=== PATIENT | female | born 1940 | race Caucasian/White ===

== ENCOUNTER → 2017-01-16 | Outpatient (CLI) | payer MEDICARE, OTHER ==
[2014-05-10 18:00] VITALS: BP 152/68
[~2017-01-16] MED LIST: AMLODIPINE BESYL5 MG PO; CALCIUM600 MG PO; CARVEDILOL25 MG PO; CELEXA20 MG PO; COLACE 100100 MG/CAP PO; FISH OIL 1000MG1 CAP PO; GARLIC500 M1 PO; GOOD SENSE ASPI81 M1 PO; GREEN COFFEE BEAN EX PO; JANUVIA100 MG PO; L-THYROXINE0.075 MG PO; LANTUS SOLOS100 U/M1 SC; LISINOPRIL/HCTZ1 TA2 PO; MELOXICAM7.5 MG PO; METFORMIN1000 MG PO; MOBIC7.5 MG PO; NEIGHBOR PO; NORCO 325 MG-51 TA1 PO; PRAVACHOL80 MG PO; PRINIVIL40 MG PO; VITAMIN E 400 U4001 PO
== END ==
LOC: MAMMO 09:02
DX: Z12.31 Encounter for screening mammogram for malignant neoplasm of breast (principal)
CPT/HCPCS: G0202

== ENCOUNTER → 2017-05-31 | Outpatient (CLI) | payer MEDICARE, OTHER ==
[2014-05-10 18:00] VITALS: BP 152/68
[2017-05-31 14:02] LABS: HEMATOCRIT 35.9 % (37.0-47.0); HEMOGLOBIN 11.3 g/dL (12.5-16.0); MEAN CELL VOLUME 87 fl (78-100); MEAN CORPUSCULAR HEMOGLOBIN 28 pg (27-31); MEAN CORPUSCULAR HGB CONC 32 g/dL (33-37); MEAN PLATELET VOLUME 9.8 fl (7.4-10.4); PLATELET COUNT 268 K/mm3 (130-400); RED BLOOD COUNT 4.11 M/mm3 (4.10-5.30); RED CELL DISTRIBUTION WIDTH 13.8 % (11.5-14.5); WHITE BLOOD COUNT 13.7 K/mm3 (4.8-10.8)
[2017-05-31 14:13] LABS: CALCIUM 9.2 mg/dL (8.4-10.2); POTASSIUM 3.8 mmol/L (3.6-5.0)
[2017-05-31 14:14] LABS: LYMPHOCYTE 18 % (20-51); MONOCYTE 5 % (3-10); NEUTROPHILS 75 % (42-75)
[2017-05-31 14:18] LABS: D-DIMER 0.53 mg/L FEU (0.15-0.50)
== END ==
LOC: RAD 13:45
PROVIDERS: Physician Assistant
DX: M77.31 Calcaneal spur, right foot (principal); R60.0 Localized edema

== ENCOUNTER → 2017-06-01 | Outpatient (CLI) | payer MEDICARE, OTHER ==
[~2017-06-01] MED LIST changes: +AMARYL4 M1 PO; +BENADRYL PO; +CALCIUM PO; +CELEXA 20MG20 MG/TA1 PO; +CENTRUM WOMEN1 EACH PO; +CIPRO250 M1 PO; +LANTUS SOLOS100 U/ML SQ; +METFOMIN HYDRO850 MG PO; +NAPROXEN SODIU220 M1 PO; +SLOW-MAG 106 MG1 ECT PO; +VITAMIN PO
== END ==
LOC: RAD 09:42
DX: M79.661 Pain in right lower leg (principal); M79.89 Other specified soft tissue disorders

== ENCOUNTER → 2017-06-01 | Outpatient (CLI) | payer MEDICARE, OTHER ==
[2014-05-10 18:00] VITALS: BP 152/68
[~2017-06-01] MED LIST changes: -AMARYL4 M1 PO; -BENADRYL PO; -CALCIUM PO; -CELEXA 20MG20 MG/TA1 PO; -CENTRUM WOMEN1 EACH PO; -CIPRO250 M1 PO; -LANTUS SOLOS100 U/ML SQ; -METFOMIN HYDRO850 MG PO; -NAPROXEN SODIU220 M1 PO; -SLOW-MAG 106 MG1 ECT PO; -VITAMIN PO
== END ==
LOC: RAD 09:42
DX: M79.604 Pain in right leg (principal); M79.89 Other specified soft tissue disorders

== ENCOUNTER 2017-07-29 19:31 | Emergency (ER) | payer MEDICARE, OTHER ==
[~2017-07-29] VITALS: Ht 149.9 cm; Wt 79.5 kg
[2017-07-29 20:21] LABS: HEMATOCRIT 32.5 % (37.0-47.0); HEMOGLOBIN 10.4 g/dL (12.5-16.0); MEAN CELL VOLUME 84 fl (78-100); MEAN CORPUSCULAR HEMOGLOBIN 27 pg (27-31); MEAN CORPUSCULAR HGB CONC 32 g/dL (33-37); MEAN PLATELET VOLUME 10.3 fl (7.4-10.4); PLATELET COUNT 205 K/mm3 (130-400); RED BLOOD COUNT 3.85 M/mm3 (4.10-5.30)
[2017-07-29 20:32] LABS: ALBUMIN 3.7 g/dL (3.5-5.0); BAND 11 % (0-10); BUN/CREATININE RATIO 17.3 (6.0-26.0); CALCIUM 8.6 mg/dL (8.4-10.2); LYMPHOCYTE 7 % (20-51); MONOCYTE 5 % (3-10); NEUTROPHILS 77 % (42-75); POTASSIUM 4.2 mmol/L (3.6-5.0); TOTAL BILIRUBIN 2.2 mg/dL (0.2-1.3); TOTAL PROTEIN 6.8 g/dL (6.3-8.2); WHITE BLOOD COUNT 23.2 K/mm3 (4.8-10.8)
[2017-07-29] MEDS ORDERED: VITAMIN PO (20:50)
[2017-07-29] MEDS ORDERED: CALCIUM PO (20:50)
[2017-07-29] MEDS ORDERED: BENADRYL PO (20:52)
[2017-07-29] MEDS ORDERED: CELEXA 20MG20 MG/TA1 PO (20:52)
[2017-07-29] MEDS ORDERED: AMARYL4 M1 PO (20:53)
[2017-07-29] MEDS ORDERED: LANTUS SOLOS100 U/ML SQ (20:54)
[2017-07-29] MEDS ORDERED: SLOW-MAG 106 MG1 ECT PO (20:56)
[2017-07-29] MEDS ORDERED: METFOMIN HYDRO850 MG PO (20:57)
[2017-07-29] MEDS ORDERED: NAPROXEN SODIU220 M1 PO (20:58)
[2017-07-29] MEDS ORDERED: CENTRUM WOMEN1 EACH PO (21:00)
[2017-07-29 22:09] LABS: URINE APPEARANCE CLOUDY; URINE BILIRUBIN NEGATIVE (NEGATIVE); URINE BLOOD 50 ery/uL (NEGATIVE); URINE COLOR YELLOW; URINE GLUCOSE 50 mg/dL mg/dL (NEGATIVE); URINE KETONE NEGATIVE (NEGATIVE); URINE LEUKOCYTE ESTERASE 2+ (NEGATIVE); URINE NITRATE NEGATIVE (NEGATIVE); URINE PROTEIN(semi-quant) 1+ mg/dL (NEGATIVE); URINE UROBILINOGEN NORMAL (NORMAL); URINE WBC >50 /hpf (0-3)
[2017-07-29 22:10] LABS: URINE MUCUS PRESENT (NOT PRESENT)
[2017-07-30] MEDS ORDERED: CIPRO250 M1 PO (00:04)
[2017-07-30 00:18] VITALS: BP 127/60
== END 2017-07-30 00:18 | disposition home or self-care (01) ==
LOC: ED 19:31
PROVIDERS: Family Medicine
DX: N39.0 Urinary tract infection, site not specified (principal); E83.42 Hypomagnesemia; E03.9 Hypothyroidism, unspecified; E10.8 Type 1 diabetes mellitus with unspecified complications; I10 Essential (primary) hypertension; R11.10 Vomiting, unspecified; Z79.82 Long term (current) use of aspirin; Z79.4 Long term (current) use of insulin
CPT/HCPCS: J1956; J3475; J3490; J7030

== ENCOUNTER → 2018-02-05 | Outpatient (CLI) | payer MEDICARE, OTHER ==
[~2018-02-05] MED LIST changes: +AMARYL4 M1 PO; +BENADRYL PO; +CALCIUM PO; +CELEXA 20MG20 MG/TA1 PO; +CENTRUM WOMEN1 EACH PO; +CIPRO250 M1 PO; +LANTUS SOLOS100 U/ML SQ; +METFOMIN HYDRO850 MG PO; +NAPROXEN SODIU220 M1 PO; +SLOW-MAG 106 MG1 ECT PO; +VITAMIN PO
== END ==
LOC: MAMMO 10:42
DX: Z12.31 Encounter for screening mammogram for malignant neoplasm of breast (principal)

== ENCOUNTER 2018-05-10 09:48 | Emergency (ER) | payer MEDICARE, OTHER ==
[~2018-05-10] VITALS: Wt 84.9 kg
[2018-05-10 10:16] LABS: BASO # 0.1 (0.02-0.10); EOS # 0.2 (0.04-0.40); EOS % 1.6 % (1.0-5.0); HEMATOCRIT 35.4 % (37.0-47.0); HEMOGLOBIN 11.6 g/dL (12.5-16.0); MEAN CELL VOLUME 89 fl (78-100); MEAN CORPUSCULAR HEMOGLOBIN 29 pg (27-31); MEAN CORPUSCULAR HGB CONC 33 g/dL (33-37); MEAN PLATELET VOLUME 8.9 fl (7.4-10.4); NEU # 6.6 (1.40-6.50); PLATELET COUNT 320 K/mm3 (130-400); RED BLOOD COUNT 3.99 M/mm3 (4.10-5.30); RED CELL DISTRIBUTION WIDTH 13.5 % (11.5-14.5); WHITE BLOOD COUNT 9.7 K/mm3 (4.8-10.8)
[2018-05-10 10:39] LABS: ALBUMIN 4.5 g/dL (3.5-5.0); CALCIUM 9.5 mg/dL (8.4-10.2); POTASSIUM 4.2 mmol/L (3.6-5.0); TOTAL BILIRUBIN 1.7 mg/dL (0.2-1.3); TOTAL PROTEIN 7.4 g/dL (6.3-8.2)
[2018-05-10 10:54] LABS: PH-URINE 6.5 (5.0 - 8.0); URINE APPEARANCE CLEAR; URINE BILIRUBIN NEGATIVE (NEGATIVE); URINE BLOOD 50 ery/uL (NEGATIVE); URINE COLOR YELLOW; URINE GLUCOSE NEGATIVE (NEGATIVE); URINE KETONE NEGATIVE (NEGATIVE); URINE LEUKOCYTE ESTERASE 1+ (NEGATIVE); URINE NITRATE NEGATIVE (NEGATIVE); URINE PROTEIN(semi-quant) 3+ mg/dL (NEGATIVE); URINE UROBILINOGEN NORMAL (NORMAL)
[2018-05-10] MEDS ORDERED: AMILORIDE HCL5 MG PO (11:20)
[2018-05-10] MEDS ORDERED: FUROSEMIDE40 MG (11:20)
[2018-05-10] MEDS ORDERED: SYNTHROID0.075 MG PO (11:20)
[2018-05-10] MEDS ORDERED: GLIMEPIRIDE4 MG PO (11:20)
[2018-05-10] MEDS ORDERED: LANTUS SOLOS100 U/ML SQ (11:22)
[2018-05-10] MEDS ORDERED: CEPHALEXIN500 M2 PO (13:09)
[2018-05-10 13:34] VITALS: BP 164/65
== END 2018-05-10 13:16 | disposition home or self-care (01) ==
LOC: ED 09:48
PROVIDERS: Nurse Practitioner
DX: E11.649 Type 2 diabetes mellitus with hypoglycemia without coma (principal); N39.0 Urinary tract infection, site not specified; Z88.2 Allergy status to sulfonamides; I10 Essential (primary) hypertension; E03.9 Hypothyroidism, unspecified; K21.9 Gastro-esophageal reflux disease without esophagitis; Z79.899 Other long term (current) drug therapy; Z79.82 Long term (current) use of aspirin; Z79.4 Long term (current) use of insulin

== ENCOUNTER 2019-01-26 15:17 | Emergency (ER) | payer MEDICARE, OTHER ==
[~2019-01-26 15:17] MED LIST changes: +AMILORIDE HCL5 MG PO; +AMOXICILLIN AND1 TA2 PO; +CALCIUM CARBONATE PO; -CALCIUM PO; +CALTRATE-600 W600 MG PO; +CEPHALEXIN500 M2 PO; +CIPRO500 M1 PO; +COREG 25MG25 MG/TAB PO; +FERROUS SULFAT325 M4 PO; +FUROSEMIDE40 MG PO; +GLIMEPIRIDE4 MG PO; +LEADER MAGNESIU1 TAB PO; +LEADER MELATONIN5 MG PO; +LEADER NATUR1000 MCG PO; +MI-ACID 200 MG-1 CT1 PO; +MUCINEX 60600 MG/TA1 PO; +NORVASC 10MG10 MG PO; +POTASSIUM GLUC500 M1 PO; +PROTONIX20 M1 PO; +SYNTHROID0.075 MG PO; -VITAMIN PO
[2019-01-26 15:24] VITALS: BP 198/83
[2019-01-26 16:48] LABS: EOS # 0.1 (0.04-0.40); EOS % 0.4 % (1.0-5.0); HEMATOCRIT 34.1 % (37.0-47.0); HEMOGLOBIN 11.3 g/dL (12.5-16.0); LYMPH# 2.5 (1.50-4.00); MEAN CELL VOLUME 85 fl (78-100); MEAN CORPUSCULAR HEMOGLOBIN 28 pg (27-31); MEAN CORPUSCULAR HGB CONC 33 g/dL (33-37); MEAN PLATELET VOLUME 8.9 fl (7.4-10.4); PLATELET COUNT 299 K/mm3 (130-400); RED BLOOD COUNT 4.03 M/mm3 (4.10-5.30); RED CELL DISTRIBUTION WIDTH 14.1 % (11.5-14.5); WHITE BLOOD COUNT 13.2 K/mm3 (4.8-10.8)
[2019-01-26 16:50] LABS: NEU # 9.6 (1.40-6.50)
[2019-01-26 16:58] LABS: ALBUMIN 4.3 g/dL (3.4-4.8); POTASSIUM 4.2 mmol/L (3.5-5.1)
[2019-01-26 16:59] LABS: CALCIUM 9.5 mg/dL (8.3-10.5)
[2019-01-26 17:00] LABS: TOTAL PROTEIN 7.4 g/dL (6.2-8.1)
[2019-01-26 17:02] LABS: TOTAL BILIRUBIN 1.8 mg/dL (0.2-1.2)
[2019-01-26 17:15] LABS: D-DIMER 0.55 mg/L FEU (0.15-0.50)
[2019-01-26] MEDS ORDERED: NORCO 325 MG-51 TA1 PO (18:56)
[2019-01-27] MEDS ORDERED: LEADER MELATONIN5 MG PO (17:58)
[2019-01-28] MEDS ORDERED: ZOFRAN4 M2 PO (08:47)
== END 2019-01-26 19:30 | disposition home or self-care (01) ==
LOC: ED 15:17
PROVIDERS: Family Medicine
DX: M18.12 Unilateral primary osteoarthritis of first carpometacarpal joint, left hand (principal); Z79.82 Long term (current) use of aspirin; Z79.4 Long term (current) use of insulin

== ENCOUNTER 2019-12-09 11:41 | Emergency (ER) | payer MEDICARE, OTHER ==
[~2019-12-09] VITALS: Wt 80.5 kg
[~2019-12-09 11:41] MED LIST changes: +ASPIRIN E.C. 8181 MG PO; -GOOD SENSE ASPI81 M1 PO; -LEADER NATUR1000 MCG PO; +LISINOPRIL40 MG PO; -PRAVACHOL80 MG PO; +PRAVASTATIN SOD80 MG PO; -PRINIVIL40 MG PO; +VITAMIN B12 1541 TAB PO; +ZOFRAN4 M2 PO
[2019-12-09 12:18] LABS: BASO # 0.1 (0.02-0.10); EOS # 0.1 (0.04-0.40); EOS % 1.1 % (1.0-5.0); HEMOGLOBIN 11.8 g/dL (12.5-16.0); LYMPH# 2.8 (1.50-4.00); MEAN CELL VOLUME 88 fl (78-100); MEAN CORPUSCULAR HEMOGLOBIN 28 pg (27-31); MEAN CORPUSCULAR HGB CONC 32 g/dL (33-37); MEAN PLATELET VOLUME 9.7 fl (7.4-10.4); MONO # 1.1 (0.20-0.80); NEU # 8.7 (1.40-6.50); PLATELET COUNT 259 K/mm3 (130-400); RED CELL DISTRIBUTION WIDTH 13.8 % (11.5-14.5); WHITE BLOOD COUNT 12.9 K/mm3 (4.8-10.8)
[2019-12-09 12:30] LABS: ALBUMIN 4.3 g/dL (3.4-4.8); POTASSIUM 4.2 mmol/L (3.5-5.1)
[2019-12-09 12:31] LABS: SODIUM 135 mmol/L (136-145)
[2019-12-09 12:32] LABS: CALCIUM 8.9 mg/dL (8.3-10.5)
[2019-12-09 12:33] LABS: PH-URINE 6.5 (5.0 - 8.0); URINE APPEARANCE CLEAR; URINE BILIRUBIN NEGATIVE (NEGATIVE); URINE BLOOD NEGATIVE (NEGATIVE); URINE COLOR YELLOW; URINE GLUCOSE NEGATIVE (NEGATIVE); URINE KETONE NEGATIVE (NEGATIVE); URINE LEUKOCYTE ESTERASE NEGATIVE (NEGATIVE); URINE NITRATE NEGATIVE (NEGATIVE); URINE PROTEIN(semi-quant) TRACE mg/dL (NEGATIVE); URINE UROBILINOGEN NORMAL (NORMAL)
[2019-12-09 12:33] LABS: GLUCOSE 102 mg/dL (65-105); TOTAL PROTEIN 7.4 g/dL (6.2-8.1)
[2019-12-09 12:34] LABS: CARBON DIOXIDE 22 mmol/L (23-31)
[2019-12-09 12:35] LABS: TOTAL BILIRUBIN 1.6 mg/dL (0.2-1.2)
[2019-12-09 12:38] LABS: AST-SGOT 20 U/L (5-34)
[2019-12-09 12:39] LABS: ALT/SGPT 14 U/L (0-55)
[2019-12-09 12:45] LABS: TROPONIN-I < 0.03 ng/mL (<0.030)
[2019-12-09 13:09] LABS: D-DIMER 0.67 mg/L FEU (0.15-0.50)
[2019-12-09] MEDS ORDERED: DAILY VALUE1 EACH PO (14:38)
[2019-12-09 15:30] VITALS: BP 171/67
== END 2019-12-09 15:41 | disposition home or self-care (01) ==
LOC: ED 11:41
PROVIDERS: Nurse Practitioner Family
DX: I11.0 Hypertensive heart disease with heart failure (principal); I50.9 Heart failure, unspecified; I35.0 Nonrheumatic aortic (valve) stenosis; E11.9 Type 2 diabetes mellitus without complications; E03.9 Hypothyroidism, unspecified; K21.9 Gastro-esophageal reflux disease without esophagitis; Z79.4 Long term (current) use of insulin; Z79.82 Long term (current) use of aspirin; Z79.890 Hormone replacement therapy
CPT/HCPCS: Q9967

== ENCOUNTER 2020-06-10 17:28 | Emergency (ER) | payer MEDICARE, OTHER ==
[~2020-06-10 17:28] MED LIST changes: +DAILY VALUE1 EACH PO
[2020-06-10 18:09] LABS: POTASSIUM 4.6 mmol/L (3.5-5.1); SODIUM 128 mmol/L (136-145)
[2020-06-10 18:10] LABS: CALCIUM 8.8 mg/dL (8.3-10.5)
[2020-06-10 18:11] LABS: GLUCOSE 309 mg/dL (65-105); TOTAL PROTEIN 6.4 g/dL (6.2-8.1)
[2020-06-10 18:12] LABS: CARBON DIOXIDE 22 mmol/L (23-31); HEMATOCRIT 28.4 % (37.0-47.0); HEMOGLOBIN 8.9 g/dL (12.5-16.0); MEAN CELL VOLUME 88 fl (78-100); MEAN CORPUSCULAR HEMOGLOBIN 28 pg (27-31); MEAN CORPUSCULAR HGB CONC 31 g/dL (33-37); MEAN PLATELET VOLUME 10.1 fl (7.4-10.4); PLATELET COUNT 408 K/mm3 (130-400); RED BLOOD COUNT 3.24 M/mm3 (4.10-5.30); RED CELL DISTRIBUTION WIDTH 14.1 % (11.5-14.5); WHITE BLOOD COUNT 14.1 K/mm3 (4.8-10.8)
[2020-06-10 18:13] LABS: TOTAL BILIRUBIN 1.2 mg/dL (0.2-1.2)
[2020-06-10 18:16] LABS: AST-SGOT 14 U/L (5-34)
[2020-06-10 18:18] LABS: ALT/SGPT 16 U/L (0-55)
[2020-06-10 18:23] LABS: D-DIMER 0.92 mg/L FEU (0.15-0.50)
[2020-06-10 18:49] LABS: TROPONIN-I < 0.03 ng/mL (<0.030)
[2020-06-10 20:47] LABS: HYPOCHROMIA 1+; LYMPHOCYTE 16 % (20-51); MONOCYTE 3 % (3-10); NEUTROPHILS 80 % (42-75)
[2020-06-10 21:48] VITALS: BP 163/86
== END 2020-06-10 21:48 | disposition short-term general hospital (02) ==
LOC: ED 17:28
PROVIDERS: Nurse Practitioner Family
DX: J98.01 Acute bronchospasm (principal); J84.9 Interstitial pulmonary disease, unspecified; N17.9 Acute kidney failure, unspecified; J96.01 Acute respiratory failure with hypoxia; I11.0 Hypertensive heart disease with heart failure; I50.9 Heart failure, unspecified; E11.9 Type 2 diabetes mellitus without complications; E11.22 Type 2 diabetes mellitus with diabetic chronic kidney disease; N18.9 Chronic kidney disease, unspecified
CPT/HCPCS: J0696; J1940; J7030; Q9967

== ENCOUNTER 2021-02-26 10:37 | Emergency (ER) | payer MEDICARE, OTHER ==
[~2021-02-26] VITALS: Ht 147.3 cm; Wt 80.5 kg
[2021-02-26] MEDS ORDERED: CLOPIDOGREL75 M2 PO (10:57)
[2021-02-26] MEDS ORDERED: FUROSEMIDE20 MG PO (10:59)
[2021-02-26] MEDS ORDERED: LANTUS SOLOS100 U/ML SQ (11:00)
[2021-02-26] MEDS ORDERED: ISOSORBIDE30 MG PO (11:01)
[2021-02-26] MEDS ORDERED: LEVETIRACETAM500 M2 PO (11:03)
[2021-02-26] MEDS ORDERED: DOCUSATE SOD100 MG PO (11:04)
[2021-02-26] MEDS ORDERED: SERTRALINE50 MG PO (11:04)
[2021-02-26] MEDS ORDERED: FAMOTIDINE20 MG PO (11:05)
[2021-02-26] MEDS ORDERED: PERCOCET 325 MG1 TA2 PO (11:55)
[2021-02-26 12:13] VITALS: BP 178/72
== END 2021-02-26 12:13 | disposition home or self-care (01) ==
LOC: ED 10:37
DX: S76.911A Strain of unspecified muscles, fascia and tendons at thigh level, right thigh, initial encounter (principal); E11.9 Type 2 diabetes mellitus without complications; I10 Essential (primary) hypertension; K21.9 Gastro-esophageal reflux disease without esophagitis; E03.9 Hypothyroidism, unspecified; Z79.899 Other long term (current) drug therapy; Z79.890 Hormone replacement therapy; Z79.4 Long term (current) use of insulin; Z79.02 Long term (current) use of antithrombotics/antiplatelets; X50.0XXA Overexertion from strenuous movement or load, initial encounter; Y93.01 Activity, walking, marching and hiking
CPT/HCPCS: J2270

== ENCOUNTER → 2021-11-03 | Outpatient (CLI) | payer MEDICARE, OTHER ==
[~2021-11-03] MED LIST changes: +CLOPIDOGREL75 M2 PO; +DOCUSATE SOD100 MG PO; +FAMOTIDINE20 MG PO; +FUROSEMIDE20 MG PO; +ISOSORBIDE30 MG PO; +LEVETIRACETAM500 M2 PO; +PERCOCET 325 MG1 TA2 PO; +SERTRALINE50 MG PO
[2021-11-03 12:29] LABS: BASO # 0.07 K/mm3 (0.02-0.10); EOS # 0.11 K/mm3 (0.04-0.40); EOS % 0.9 % (1.0-5.0); HEMATOCRIT 37.1 % (37.0-47.0); LYMPH# 2.51 K/mm3 (1.50-4.00); MEAN CELL VOLUME 88 fl (78-100); MEAN CORPUSCULAR HEMOGLOBIN 28 pg (27-31); MEAN CORPUSCULAR HGB CONC 32 g/dL (33-37); MEAN PLATELET VOLUME 9.8 fl (7.4-10.4); MONO # 1.09 K/mm3 (0.20-0.80); NEU # 9.01 K/mm3 (1.40-6.50); PLATELET COUNT 234 K/mm3 (130-400); RED BLOOD COUNT 4.22 M/mm3 (4.10-5.30); RED CELL DISTRIBUTION WIDTH 13.3 % (11.5-14.5); WHITE BLOOD COUNT 12.8 K/mm3 (4.8-10.8)
[2021-11-03 12:49] LABS: ALBUMIN 4.3 g/dL (3.4-4.8); POTASSIUM 3.8 mmol/L (3.5-5.1)
[2021-11-03 12:50] LABS: CALCIUM 9.5 mg/dL (8.3-10.5)
[2021-11-03 12:51] LABS: TOTAL PROTEIN 7.6 g/dL (6.2-8.1)
[2021-11-03 12:53] LABS: TOTAL BILIRUBIN 1.7 mg/dL (0.2-1.2)
== END ==
LOC: LAB 11:06 → RAD 11:06
PROVIDERS: Nurse Practitioner
DX: M25.571 Pain in right ankle and joints of right foot (principal); M79.89 Other specified soft tissue disorders

== ENCOUNTER 2024-03-19 11:32 | Emergency (ER) | payer MEDICARE, OTHER ==
[~2024-03-19] VITALS: Ht 149.9 cm; Wt 60.5 kg
[~2024-03-19 11:32] MED LIST changes: +JARDIANCE10 MG PO; +MACROBID 100 M100 MG PO; +ZYLOPRIM 100MG100 MG PO
[2024-03-19] MEDS ORDERED: INSULIN AS100 UNIT/5 (11:59)
[2024-03-19] MEDS ORDERED: Ketorolac 10 MG TAB PO ONE (12:45)
[2024-03-19] MEDS ORDERED: COLCHICINE0.6 M2 PO (13:13)
[2024-03-19] MEDS ORDERED: KETOROLAC10 MG PO (13:13)
[2024-03-19 13:37] VITALS: BP 126/59
== END 2024-03-19 13:17 | disposition home or self-care (01) ==
LOC: ED 11:32
DX: M10.9 Gout, unspecified (principal)